=== PATIENT | female | born 1970 | race Native Hawaiian/Other Pacific Islander ===

== ENCOUNTER 2017-09-14 10:59 | Emergency (ER) | payer MEDICAID ==
[2017-09-14 11:07] VITALS: BP 136/77; PULSE 68; RESP 16; TEMP 98.3; O2SAT 98
[2017-09-14] MEDS ORDERED: Amoxicillin-Clav 875-125 mg Tab PO STA (11:30)
--- NOTE | 2017-09-14 11:33 | C.PDOC ---
History Of Present Illness 47 year old female, with no significant PMHx, presents to the ED for evaluation of sore throat which gradually developed over the past 4 days. Patient states symptoms are associated with low-grade fever and states she developed a dry cough yesterday. She denies high fever, headache, dizziness, drooling, chest pain, shortness of breath, abdominal pain, nausea, and vomiting. Time Seen by Provider: 09/14/17 11:22 Chief Complaint (Nursing): ENT Problem History Per: Patient History/Exam Limitations: None Onset/Duration Of Symptoms: Days (4), Gradual Current Symptoms Are (Timing): Still Present Past Medical History Reviewed: Historical Data, Nursing Documentation, Vital Signs Vital Signs: Last Vital Signs Temp 98.3 F 09/14/17 11:04 Pulse 68 09/14/17 11:04 Resp 16 09/14/17 11:04 BP 136/77 09/14/17 11:04 Pulse Ox 98 09/14/17 11:47 - Medical History PMH: No Chronic Diseases Surgical History: No Surg Hx Family History: States: Unknown Family Hx - Social History Hx Alcohol Use: No Hx Substance Use: No - Immunization History Hx Tetanus Toxoid Vaccination: No Hx Influenza Vaccination: No Hx Pneumococcal Vaccination: No Review Of Systems Constitutional: Positive for: Fever. Negative for: Chills ENT: Positive for: Throat Pain Cardiovascular: Negative for: Chest Pain Respiratory: Positive for: Cough. Negative for: Shortness of Breath, Sputum Gastrointestinal: Negative for: Nausea, Vomiting, Abdominal Pain Neurological: Negative for: Headache, Dizziness Physical Exam - Physical Exam Appears: Well, Non-toxic, No Acute Distress Skin: Normal Color, Warm, Dry, No Rash Head: Normacephalic Eye(s): bilateral: PERRL Ear(s): Bilateral: Normal Nose: No Flaring, No Discharge Oral Mucosa: Moist, No Drooling, No Trismus Tongue: Normal Appearing Lips: Normal Appearing Throat: Erythema (mod B/L), No Exudate, No Drooling, Other (uvula midline, no edema.) Neck: Trachea Midline, Supple, Other ((-) meningeal sign) Cardiovascular: Rhythm Regular, No Murmur, No JVD Respiratory: No Decreased Breath Sounds, No Accessory Muscle Use, No Stridor, No Wheezing Gastrointestinal/Abdominal: Soft, No Tenderness, No Distention, No Guarding Back: Normal Inspection, No CVA Tenderness Extremity: Normal ROM, No Deformity, No Swelling Neurological/Psych: Oriented x3, Normal Speech ED Course And Treatment O2 Sat by Pulse Oximetry: 98 (on RA) Pulse Ox Interpretation: Normal Progress Note: Augmentin PO, Motrin PO, and Prednisone PO administered. On re- eavl, pt is afebrile, hemodynamicaly stable. non-toxic. Tolerate Po well in ED. PulsEOx 98% RA. Neck: Supple, (-) meningea sign. ENT: exam c/w acute pharyngitis. Uvula midline, no edema. Lungs: CTA B/L, BS equal B/L. Abd: benign. back: (-) CVA tenderness. neuorlogicaly intact. Pt advised on course of ds. ref. to F/U with PMD in 2-3 days for re-eval. return to ED if any worsening or new changes. Disposition Counseled Patient/Family Regarding: Diagnosis, Need For Followup, Rx Given - Disposition Referrals: [facility] [Outside] Disposition: HOME/ ROUTINE Disposition Time: 11:31 Condition: STABLE Additional Instructions: Encourage fluids take medication as prescribed Follow up with PMD in 2-3 days for re-evaluation. return to ED if any worsening or new changes. 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 - Scribe Statement The provider has reviewed the documentation as recorded by the Scribe (Janet Worthington) All medical record entries made by the Scribe were at my direction and personally dictated by me. I have reviewed the chart and agree that the record accurately reflects my personal performance of the history, physical exam, medical decision making, and the department course for this patient. I have also personally directed, reviewed, and agree with the discharge instructions and disposition.
[2017-09-14] MEDS ORDERED: Amoxicillin-Clav 875-125 mg Tab PO ONE (11:41)
== END 2017-09-14 11:59 | disposition home or self-care (01) ==
LOC: C.ER 10:59
DX: J02.9 Acute pharyngitis, unspecified (principal)

== ENCOUNTER 2018-01-31 14:39 | Emergency (ER) | payer MEDICAID, OTHER ==
[2018-01-31 14:47] VITALS: BP 121/79; PULSE 75; RESP 18; TEMP 98.9; O2SAT 98
--- NOTE | 2018-01-31 16:25 | C.PDOC ---
History Of Present Illness 47 y/o female presents to the ED with complaints of cough and congestion. Patient reports she recently traveled back from [place] on 01/28, and since then has had a scratchy throat, cough, and generalized malaise. No fevers documented here or at home. She denies any bodyaches, nausea, headache, abdominal pain, vomiting, diarrhea, or other complaints. No known sick contacts. Time Seen by Provider: 01/31/18 15:39 Chief Complaint (Nursing): Cough, Cold, Congestion History Per: Patient History/Exam Limitations: no limitations Onset/Duration Of Symptoms: Days (x3) Current Symptoms Are (Timing): Still Present Past Medical History Reviewed: Historical Data, Nursing Documentation, Vital Signs Vital Signs: Last Vital Signs Temp 98.9 F 01/31/18 14:45 Pulse 75 01/31/18 14:45 Resp 18 01/31/18 14:45 BP 121/79 01/31/18 14:45 Pulse Ox 98 01/31/18 14:45 Surgical History: No Surg Hx Family History: States: Unknown Family Hx - Social History Hx Tobacco Use: No Hx Alcohol Use: No Hx Substance Use: No - Immunization History Hx Tetanus Toxoid Vaccination: No Hx Influenza Vaccination: No Hx Pneumococcal Vaccination: No Review Of Systems Constitutional: Positive for: Malaise. Negative for: Fever, Chills, Other (bodyaches) ENT: Positive for: Nose Congestion, Throat Pain Respiratory: Positive for: Cough Gastrointestinal: Negative for: Nausea, Vomiting, Abdominal Pain, Diarrhea Skin: Negative for: Rash Neurological: Negative for: Weakness, Headache Physical Exam - Physical Exam Appears: Non-toxic, No Acute Distress Skin: Normal Color, Warm, Dry Head: Atraumatic, Normacephalic Eye(s): bilateral: Normal Inspection, PERRL, EOMI Nose: Discharge (mild nasal congestion) Oral Mucosa: Moist Throat: Normal, No Erythema, No Exudate Neck: Normal ROM, Supple Chest: Symmetrical Cardiovascular: Rhythm Regular, No Murmur Respiratory: Normal Breath Sounds, No Accessory Muscle Use, No Rhonchi, No Wheezing Gastrointestinal/Abdominal: Soft, No Tenderness, No Distention Extremity: Bilateral: Atraumatic, Normal Color And Temperature, Normal ROM Neurological/Psych: Oriented x3, Normal Speech ED Course And Treatment O2 Sat by Pulse Oximetry: 98 (RA) Pulse Ox Interpretation: Normal Medical Decision Making Medical Decision Making: Impression: Flu-like symptoms Plan: Treated with Tylenol and Motrin PO. Flu swab ordered, and is negative. Patient remains AAOx3, afebrile, in no acute distress, and is medically stable. Counseled patient regarding course of discharge, and treatment plan. Disposition Counseled Patient/Family Regarding: Studies Performed, Diagnosis, Need For Followup, Rx Given - Disposition Disposition: HOME/ ROUTINE Disposition Time: 16:22 Condition: STABLE Additional Instructions: Get extra rest. Drink hot tea with lemon and honey. Drink plenty water. Tessla Pearls for cough. Followup with your doctor. Prescriptions: Benzonatate [Tessalon Perles] 200 mg PO BID #10 sgl Ibuprofen [Motrin] 600 mg PO TID #15 tab Sodium Chloride [[facility] Saline Nasal [facility] 44 ] 1 ml NS TID #1 bottle Instructions: Upper Respiratory Infection (ED) Forms: General Discharge Instructions, [facility] (Angolan), Work Excuse - POA Present On Arrival: None - Clinical Impression Clinical Impression: Influenza-like illness - Scribe Statement The provider has reviewed the documentation as recorded by the Noble Koch Provider Attestation: All medical record entries made by the Noble were at my direction and personally dictated by me. I have reviewed the chart and agree that the record accurately reflects my personal performance of the history, physical exam, medical decision making, and the department course for this patient. I have also personally directed, reviewed, and agree with the discharge instructions and disposition.
== END 2018-01-31 16:46 | disposition home or self-care (01) ==
LOC: C.ER 14:39
DX: J11.1 Influenza due to unidentified influenza virus with other respiratory manifestations (principal)

== ENCOUNTER 2018-03-22 09:32 | Emergency (ER) | payer OTHER ==
[2018-03-22 09:41] VITALS: RESP 18
--- NOTE | 2018-03-22 10:17 | RAD ---
Date of service: 03/22/2018 HISTORY: COUGH COMPARISON: No prior. TECHNIQUE: Chest PA and lateral FINDINGS: LUNGS: No active pulmonary disease. PLEURA: No significant pleural effusion identified. No pneumothorax apparent. CARDIOVASCULAR: No aortic atherosclerotic calcification present. Normal cardiac size. No pulmonary vascular congestion. OSSEOUS STRUCTURES: No significant abnormalities. VISUALIZED UPPER ABDOMEN: Normal. OTHER FINDINGS: None. IMPRESSION: No active disease. Concordant results with the preliminary interpretation rendered by the emergency department physician procedure.
--- NOTE | 2018-03-22 10:33 | C.PDOC ---
History Of Present Illness 47 years old female presents to ED for complaints of non-productive cough associated with chills that began 2 days ago. Denies fever, nausea, vomiting, chest pain, or shortness of breath. 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 denies: Fever, Vomiting, Diarrhea Ear Symptoms: Bilateral: None Recent travel outside of the [place]: No Past Medical History Reviewed: Historical Data, Nursing Documentation, Vital Signs Vital Signs: Last Vital Signs Temp 98.5 F 03/22/18 09:39 Pulse 73 03/22/18 09:39 Resp 18 03/22/18 09:39 BP 106/71 03/22/18 09:39 Pulse Ox 100 03/22/18 09:39 - Medical History PMH: No Chronic Diseases Surgical History: No Surg Hx Family History: States: Unknown Family Hx - Social History Hx Tobacco Use: No Hx Alcohol Use: No Hx Substance Use: No - Immunization History Hx Tetanus Toxoid Vaccination: No Hx Influenza Vaccination: No Hx Pneumococcal Vaccination: No Review Of Systems Constitutional: Positive for: Chills. Negative for: Fever Respiratory: Positive for: Cough Gastrointestinal: Negative for: Nausea, Vomiting, Abdominal Pain Skin: Negative for: Rash Neurological: Negative for: Weakness, Numbness Physical Exam - Physical Exam Appears: Non-toxic, No Acute Distress Skin: Normal Color, Warm, Dry, No Rash Head: Atraumatic, Normacephalic Eye(s): bilateral: Normal Inspection, PERRL, EOMI Oral Mucosa: Moist Neck: Normal ROM, Supple Chest: Symmetrical, No Tenderness Cardiovascular: Rhythm Regular, No Murmur Respiratory: Normal Breath Sounds, No Rales, No Rhonchi, No Wheezing, Other (NARD) Gastrointestinal/Abdominal: Soft, No Tenderness Extremity: Normal ROM Extremity: Bilateral: Atraumatic, Normal Color And Temperature, Normal ROM Pulses: Left Radial: Normal, Right Radial: Normal Neurological/Psych: Oriented x3, Normal Speech Gait: Steady ED Course And Treatment O2 Sat by Pulse Oximetry: 100 (RA) Pulse Ox Interpretation: Normal - Radiology CXR: Interpreted by Me CXR Interpretation: Yes: No Acute Disease - Other Rad CXR X-Ray: Viewed By Me, Read By Radiologist Interpretation: Date of service: 03/22/2018. HISTORY: COUGH. COMPARISON: No prior. TECHNIQUE: Chest PA and lateral. FINDINGS: LUNGS: No active pulmonar y disease. PLEURA: No significant pleural effusion identified. No pneumothorax apparent. CARDIOVASCULAR: No aortic atherosclerotic calcification present. Normal cardiac size. No pulmonary vascular congestion. OSSEOUS STRUCTURES: No significant abnormalities. VISUALIZED UPPER ABDOMEN: Normal. OTHER FINDINGS: None. IMPRESSION: No active disease. . Concordant results with the preliminary interpretation rendered by the emergency department physician\HERBERT at the conclusion of the procedure. Medical Decision Making Medical Decision Making: Plan: * Anaprox * Benzonatate * CXR Disposition Counseled Patient/Family Regarding: Studies Performed, Diagnosis, Need For Followup, Rx Given - Disposition Referrals: [facility] [Outside] [facility] [Outside] Disposition: HOME/ ROUTINE Disposition Time: 10:34 Condition: GOOD Prescriptions: Benzonatate [Tessalon Perles] 200 mg PO TID PRN #15 sgl PRN Reason: Cough Ibuprofen [Motrin] 600 mg PO Q6 #30 tab Instructions: Upper Respiratory Infection (ED) Forms: [facility] (Kiswahili) - Clinical Impression Clinical Impression: Upper respiratory infection - Scribe Statement The provider has reviewed the documentation as recorded by the Scribe Aldo Coronel All medical record entries made by the Scribe were at my direction and personally dictated by me. I have reviewed the chart and agree that the record accurately reflects my personal performance of the history, physical exam, medical decision making, and the department course for this patient. I have also personally directed, reviewed, and agree with the discharge instructions and disposition.
[2018-03-22] MEDS ORDERED: Naproxen 550 mg Tab PO STA (10:34)
[2018-03-22 10:38] VITALS: BP 116/79; PULSE 78; TEMP 98
[2018-03-22] MEDS ORDERED: Naproxen 550 mg Tab PO ONE (10:40)
[2018-03-22 10:41] VITALS: O2SAT 100
== END 2018-03-22 10:39 | disposition home or self-care (01) ==
LOC: C.ER 09:32
DX: J06.9 Acute upper respiratory infection, unspecified (principal)

== ENCOUNTER 2018-07-09 12:12 | Emergency (ER) | payer OTHER ==
[2018-07-09 12:24] VITALS: RESP 16; TEMP 98; O2SAT 98
[2018-07-09 13:06] LABS: HCG,QUALITATIVE URINE NEGATIVE (NEGATIVE)
[2018-07-09 13:17] LABS: SQUAMOUS EPITHIAL 6 /hpf (0-5); URINE BILIRUBIN NEGATIVE (NEGATIVE); URINE BLOOD NEGATIVE (NEGATIVE); URINE CLARITY Hazy (Clear); URINE COLOR Straw (YELLOW); URINE GLUCOSE (UA) NORMAL (Normal); URINE LEUKOCYTE ESTERASE 3+ Leu/uL (Negative); URINE PROTEIN NEGATIVE (NEGATIVE); URINE UROBILINOGEN NORMAL mg/dL (0.2-1.0)
[2018-07-09] MEDS ORDERED: cefTRIAXone 250 MG, Lidocaine Hydrochloride 1% 1 ML IM STA (13:30)
--- NOTE | 2018-07-09 13:31 | C.PDOC ---
History Of Present Illness 48 y/o female pt presents to the ER c/o vaginal burning during intercourse x1 day. Associated sx includes vaginal itching. Pt denies abdominal pain, fever and chills. Pt also c/o right upper arm pain for x6 months. Pt denies weakness, numbness and trauma. Time Seen by Provider: 07/09/18 12:26 Chief Complaint (Nursing): Female Genitourinary History Per: Patient History/Exam Limitations: no limitations Onset/Duration Of Symptoms: Days (x1) Current Symptoms Are (Timing): Still Present Quality Of Discomfort: Burning Past Medical History Reviewed: Historical Data, Nursing Documentation, Vital Signs Vital Signs: Last Vital Signs Temp 98 F 07/09/18 12:18 Pulse 68 07/09/18 12:18 Resp 16 07/09/18 12:18 BP 110/73 07/09/18 12:18 Pulse Ox 98 07/09/18 12:18 Family History: States: Unknown Family Hx - Social History Hx Tobacco Use: No Hx Alcohol Use: No Hx Substance Use: No - Immunization History Hx Tetanus Toxoid Vaccination: No Hx Influenza Vaccination: No Hx Pneumococcal Vaccination: No Review Of Systems Except As Marked, All Systems Reviewed And Found Negative. Constitutional: Negative for: Fever, Chills, Other (trauma ) Gastrointestinal: Negative for: Abdominal Pain Genitourinary: Positive for: Other (vaginal burning and itching ) Musculoskeletal: Positive for: Arm Pain (right upper ) Neurological: Negative for: Weakness, Numbness Physical Exam - Physical Exam Appears: Non-toxic, No Acute Distress Skin: Warm, Dry Head: Normacephalic Cardiovascular: Rhythm Regular Respiratory: Normal Breath Sounds Gastrointestinal/Abdominal: Soft, No Tenderness Pelvic: Vaginal Discharge (green), No Cervical Motion Tenderness, No Adnexal Tenderness, Other (cervicitis) Extremity: Normal ROM (x4), No Tenderness, Capillary Refill (<2 sec ), No Deformity, No Swelling Pulses: Right Radial: Normal Neurological/Psych: Oriented x3, Normal Speech, Normal Cognition ED Course And Treatment - Laboratory Results Lab Results: Urine Color Straw (YELLOW) 07/09/18 13:00 Urine Clarity Hazy (Clear) 07/09/18 13:00 Urine pH 6.0 (5.0-8.0) 07/09/18 13:00 Ur Specific [place] 1.005 (1.003-1.030) 07/09/18 13:00 Urine Protein Negative mg/dL (NEGATIVE) 07/09/18 13:00 Urine Glucose (UA) Normal mg/dL (Normal) 07/09/18 13:00 Urine Ketones Negative mg/dL (NEGATIVE) 07/09/18 13:00 Urine Blood Negative (NEGATIVE) 07/09/18 13:00 Urine Nitrate Negative (NEGATIVE) 07/09/18 13:00 Urine Bilirubin Negative (NEGATIVE) 07/09/18 13:00 Urine Urobilinogen Normal mg/dL (0.2-1.0) 07/09/18 13:00 Ur Leukocyte Esterase 3+ Sandor/uL (Negative) H 07/09/18 13:00 Urine WBC (Auto) 14 /hpf (0-5) H 07/09/18 13:00 Urine RBC (Auto) 6 /hpf (0-3) H 07/09/18 13:00 Ur Squamous Epith Cells 6 /hpf (0-5) H 07/09/18 13:00 Urine HCG, Qual Negative (NEGATIVE) 07/09/18 13:00 Urine HCG, Qual Negative (NEGATIVE) 07/09/18 13:00 O2 Sat by Pulse Oximetry: 98 (RA) Pulse Ox Interpretation: Normal Medical Decision Making Medical Decision Making: Plans: -- Chlamydia GC -- UA --Rocephin IM --Zithromax po Disposition - Disposition Referrals: Monty Araujo MD [Staff Provider] - Disposition: HOME/ ROUTINE Disposition Time: 15:08 Condition: STABLE Additional Instructions: Follow up with PMD, BUNCHER MACHINE and Orthopedist within 1-2 days. Return to ED if feel worse. Prescriptions: Fluconazole [Diflucan] 150 mg PO ONCE #1 tab metroNIDAZOLE [Flagyl] 500 mg PO Q12 #20 tab Instructions: Shoulder Pain (DC), Vaginitis Forms: [facility] (Cymraes) - Clinical Impression Clinical Impression: Vaginitis, Shoulder pain - PA / RN CLINICAL DOCUMENTATION / Resident Statement / has reviewed & agrees with the documentation as recorded. - Scribe Statement The provider has reviewed the documentation as recorded by the Noble Gilbert Do All medical record entries made by the Scribe were at my direction and personally dictated by me. I have reviewed the chart and agree that the record accurately reflects my personal performance of the history, physical exam, medical decision making, and the department course for this patient. I have also personally directed, reviewed, and agree with the discharge instructions and disposition.
[2018-07-09] MEDS ORDERED: cefTRIAXone (Rocephin) 250 mg Inj IM ONE (13:45)
[2018-07-09 15:21] VITALS: BP 125/84; PULSE 78
--- NOTE | 2018-07-09 16:17 | RAD ---
Date of service: 07/09/2018 PROCEDURE: Radiographs of the Right Shoulder HISTORY: pain COMPARISON: No prior. TECHNIQUE: 3 views obtained. FINDINGS: BONES: No acute fracture. JOINTS: Glenohumeral and acromioclavicular joints preserved. No osteoarthritis. SOFT TISSUES: Normal. OTHER FINDINGS: None. IMPRESSION: No demonstrated fracture or dislocation.
== END 2018-07-09 15:20 | disposition home or self-care (01) ==
LOC: C.ER 12:12
DX: N76.0 Acute vaginitis (principal); M25.511 Pain in right shoulder
CPT/HCPCS: 73030; 81001; 84703; 87491; 87591; 96372; 99283; J0696

== ENCOUNTER 2018-08-11 09:59 | Emergency (ER) | payer OTHER ==
[2018-08-11 10:19] VITALS: TEMP 98.3
--- NOTE | 2018-08-11 10:55 | C.PDOC ---
History Of Present Illness 48 y/o female with no significant pmx presents to ed with 2+ week hx of 'feeling low energy' and feeling like 'her heart is going down' but unable to describe what she means by that. pt denies cp, sob, cough, fever, chills. denies decrease in sleep, denies depression, anxiety, hx psychiatric disorder, hi, si or ah. no recent travel. no sick contacts. denies any change of or increase in menstrual bleeding. denies headache, feeling lightheaded or dizzy. denies change in diet. +10 pound weight gain in last year. denies any precipitating or exacerbating factors. Time Seen by Provider: 08/11/18 10:22 Chief Complaint (Nursing): Weakness/Neurological Deficit History Per: Patient History/Exam Limitations: no limitations Onset/Duration Of Symptoms: Days (14+) Current Symptoms Are (Timing): Still Present Past Medical History Reviewed: Historical Data, Nursing Documentation, Vital Signs Vital Signs: Last Vital Signs Temp 98.3 F 08/11/18 10:16 Pulse 73 08/11/18 10:16 Resp 18 08/11/18 10:16 BP 113/74 08/11/18 10:16 Pulse Ox 98 08/11/18 10:16 Primary Care Provider: Non [facility] Provider, - Medical History PMH: No Chronic Diseases Surgical History: No Surg Hx Family History: States: No Known Family Hx - Social History Hx Tobacco Use: No Hx Alcohol Use: Yes Hx Substance Use: No - Immunization History Hx Tetanus Toxoid Vaccination: No Hx Influenza Vaccination: No Hx Pneumococcal Vaccination: No Review Of Systems Constitutional: Positive for: Other (low energy). Negative for: Fever, Chills Cardiovascular: Positive for: Other ("heart going down"). Negative for: Chest Pain, Light Headedness Respiratory: Negative for: Cough, Shortness of Breath Gastrointestinal: Positive for: Other (10lb weight gain, no change in diet.) Genitourinary: Negative for: Vaginal Bleeding Neurological: Negative for: Dizziness Psych: Negative for: Anxiety, Depression, Other (sleep deprivation) Physical Exam - Physical Exam Appears: Non-toxic, No Acute Distress Skin: Normal Color, Warm, Dry Head: Atraumatic, Normacephalic Eye(s): bilateral: Normal Inspection, PERRL, EOMI Nose: Normal Oral Mucosa: Moist Neck: Normal, Supple Chest: Symmetrical, No Tenderness Cardiovascular: Rhythm Regular, No Murmur Respiratory: Normal Breath Sounds, No Rales, No Rhonchi, No Wheezing Gastrointestinal/Abdominal: Bowel Sounds, Soft, No Tenderness, No Guarding, No Rebound Extremity: Normal ROM Neurological/Psych: Oriented x3, Normal Speech, Normal Cognition ED Course And Treatment - Laboratory Results Result Diagrams: 08/11/18 10:59 08/11/18 10:59 ECG: Interpreted By Me ECG Rhythm: Sinus Rhythm Interpretation Of ECG: Normal sinus rhythm at 63bpm. low voltage QRS, Borderline EKG. O2 Sat by Pulse Oximetry: 98 (RA) Pulse Ox Interpretation: Normal Medical Decision Making Medical Decision Making: Plan: EKG Chemistry CBC Glucose POC POC Urine Urinalysis 1232 blood and urine test results reviewed with patient; she now describes feeling as similar to palpitations; denies caffeine and drug use. advised to keep diary of events prior to having such feelings. and also to f/u with pmd and with crc to talk to someone about possible anxiety. Disposition Counseled Patient/Family Regarding: Studies Performed, Diagnosis, Need For Followup - Disposition Referrals: Sandra Worthington MD [Staff Provider] - [facility] [Outside] [facility] [Outside] [facility] [Outside] Disposition: HOME/ ROUTINE Disposition Time: 12:39 Condition: GOOD Additional Instructions: Keep diary when you feel like this- low energy or anxiety or palpitations. Follow up with your doctor or in medical clinic and also in [facility]. 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 - Scribe Statement The provider has reviewed the documentation as recorded by the Scribe (Bean Flaherty) All medical record entries made by the Scribe were at my direction and personally dictated by me. I have reviewed the chart and agree that the record accurately reflects my personal performance of the history, physical exam, medical decision making, and the department course for this patient. I have also personally directed, reviewed, and agree with the discharge instructions and disposition.
[2018-08-11 11:02] LABS: SQUAMOUS EPITHIAL < 1 /hpf (0-5); URINE BILIRUBIN NEGATIVE (NEGATIVE); URINE BLOOD NEGATIVE (NEGATIVE); URINE CLARITY Clear (Clear); URINE COLOR Straw (YELLOW); URINE GLUCOSE (UA) NORMAL (Normal); URINE LEUKOCYTE ESTERASE NEG Leu/uL (Negative); URINE PROTEIN NEGATIVE (NEGATIVE); URINE UROBILINOGEN NORMAL mg/dL (0.2-1.0)
[2018-08-11 11:05] LABS: BASO # 0.1 K/uL (0.0-0.2); EOS # 0.1 K/uL (0.0-0.7); EOS % 1.3 % (0.0-4.0); HEMOGLOBIN 14.1 g/dL (11.0-16.0); LYMPH # 2.1 K/uL (1.0-4.3); LYMPH % 26.3 % (20.0-40.0); MEAN CELL VOLUME 86.7 fL (81.0-99.0); MEAN CORPUSCULAR HEMOGLOBIN 29.5 pg (27.0-31.0); MEAN PLATELET VOLUME 7.9 fL (7.2-11.7); MONO # 0.6 K/uL (0.0-0.8); MONO % 8.3 % (0.0-10.0); NEUT # 4.9 K/uL (1.8-7.0); NEUT % 63.1 % (50.0-75.0); NRBC % 0.1 % (0.0-2.0); RBC 4.79 Mil/uL (3.80-5.20); RED CELL DISTRIBUTION WIDTH 13.8 % (11.5-14.5); WHITE BLOOD COUNT 7.8 K/uL (4.8-10.8)
[2018-08-11 11:17] LABS: ALB/GLOB RATIO 1.1 (1.0-2.1); ALBUMIN 4.5 g/dL (3.5-5.0); ALT/SGPT 43 U/L (9-52); AST/SGOT 42 U/L (14-36); BLOOD UREA NITROGEN 7 mg/dL (7-17); CALCIUM 9.8 mg/dl (8.6-10.4); GFR NON-AFRICAN AMERICAN > 60
[2018-08-11 12:35] VITALS: BP 116/73; PULSE 60; RESP 18
[2018-08-11 12:38] VITALS: O2SAT 98
--- NOTE | 2018-08-13 14:15 | CARD ---
APPROVED REPORT Date of service: 08/11/2018 EKG Measurement Heart [id number] <Conclusion> Normal sinus rhythm Low voltage QRS Borderline ECG
== END 2018-08-11 12:54 | disposition home or self-care (01) ==
LOC: C.ER 09:59
DX: R53.83 Other fatigue (principal)